=== PATIENT | female | born 1985 | race Caucasian/White ===

== ENCOUNTER 2017-10-29 07:30 | Inpatient (IN) | payer MEDICAID ==
[2017-11-04] MEDS ORDERED: cefOXitin 2 GM in Sodium Chloride 0.9% 50 ML IV ONE (07:15)
[2017-11-05] MEDS ORDERED: Acetaminophen 500 MG Tab PO ONE (06:00)
[2017-11-05] MEDS ORDERED: Gabapentin 300 MG Cap PO ONE (06:00)
[2017-11-05] MEDS ORDERED: Scopolamine 1.5 MG Transdermal Patch TOP ONE (06:00)
[2017-11-05] MEDS ORDERED: Celecoxib 200 MG Cap PO ONE (06:00)
[2017-11-05] MEDS ORDERED: Dextrose 5%-Lactated Ringers 1,000 ML IV SCH (06:45)
[2017-11-05] MEDS ORDERED: cefOXitin 2 GM Vial ONE ×2 (06:57→11:03)
[2017-11-05] MEDS ORDERED: Propofol 200 MG/20 ML SDV ONE (07:04)
[2017-11-05] MEDS ORDERED: Glycopyrrolate 0.2 MG/ML 5 ML MDV ONE (07:04)
[2017-11-05] MEDS ORDERED: Dexamethasone 4 MG/ML SDV ONE (07:04)
[2017-11-05] MEDS ORDERED: Ondansetron 4 MG/2 ML SDV ONE (07:04)
[2017-11-05] MEDS ORDERED: Succinylcholine 200 MG/10 ML MDV ONE (07:04)
[2017-11-05] MEDS ORDERED: Neostigmine Methylsulfate 1 MG/ML 5 ML Syringe ONE (07:04)
[2017-11-05] MEDS ORDERED: Rocuronium 50 MG/5 ML Vial ONE ×3 (07:04→10:51)
[2017-11-05] MEDS ORDERED: cefOXitin 2 GM in Sodium Chloride 0.9% 50 ML IV ONE (07:15)
[2017-11-05] MEDS ORDERED: Lidocaine 0.4%/D5W 2 GM/500 ML BAG IV SCH (07:45)
[2017-11-05] MEDS ORDERED: Ropivacaine 60 ML, Dexamethasone 8 MG, EPINEPHrine 0.4 MG, Sodium Chloride 0.9% 17.6 ML NERVRT SCH ×4 (07:45)
[2017-11-05] MEDS ORDERED: Ketamine 500 MG/5 ML MDV IV SCH (07:45)
[2017-11-05] MEDS ORDERED: Lidocaine 2% 100 MG/5 ML Syringe IVPUSH ONE (07:45)
[2017-11-05] MEDS ORDERED: Lactated Ringers 1,000 ML ONE (09:43)
[2017-11-05] MEDS ORDERED: fentaNYL 250 MCG/5 ML SDV ONE (10:57)
[2017-11-05] MEDS ORDERED: Sodium Chloride 0.9% 10 ML ONE (11:03)
[2017-11-05] MEDS ORDERED: hydrOXYzine HCl 100 MG/2 ML SDV IM ONE (12:04)
[2017-11-05] MEDS: Ketoconazole 2% Crm 30 GM Tube TOP SCH ×2 (13:31→21:01)
[2017-11-05] MEDS ORDERED: Ondansetron 4 MG/2 ML SDV IVPUSH PRN (14:00)
[2017-11-05] MEDS: Dextrose 5%-Lactated Ringers 1,000 ML IV SCH ×2 (14:00→23:48)
[2017-11-05] MEDS ORDERED: Labetalol 20 MG/4 ML Syringe IVPUSH PRN (14:00)
[2017-11-05] MEDS ORDERED: Metoclopramide 10 MG/2 ML SDV IVPUSH PRN (14:00)
[2017-11-05] MEDS ORDERED: hydrOXYzine HCl 100 MG/2 ML SDV IM PRN (14:00)
[2017-11-05] MEDS ORDERED: diphenhydrAMINE 50 MG/ML SDV IVPUSH PRN (14:00)
[2017-11-05] MEDS: cefOXitin 2 GM in Sodium Chloride 0.9% 50 ML IV SCH ×2 (14:33→19:22)
[2017-11-05] MEDS: Pantoprazole 40 MG Vial IVPUSH SCH (15:05)
[2017-11-05] MEDS: Acetaminophen Soln 650 MG/20.3 ML UD Cup PO SCH ×2 (15:05→21:02)
[2017-11-05] MEDS: Heparin Sodium 5,000 Units/ML Vial SUBCUT SCH (15:36)
[2017-11-05] MEDS: MVI, Adult with Vitamin K 10 ML, Thiamine 100 MG, Chromium/Copper/Mang/Selen/Zn 1 ML in... IV SCH ×4 (18:24)
[2017-11-05] MEDS: Gabapentin 250 MG/5 ML Solution ML 470 ML Bottle PO SCH (20:57)
[2017-11-06] MEDS: Heparin Sodium 5,000 Units/ML Vial SUBCUT SCH ×3 (00:37→16:46)
[2017-11-06] MEDS: cefOXitin 2 GM in Sodium Chloride 0.9% 50 ML IV SCH ×4 (02:39→20:15)
[2017-11-06] MEDS: Acetaminophen Soln 650 MG/20.3 ML UD Cup PO SCH ×4 (05:06→22:14)
[2017-11-06] MEDS: Dextrose 5%-Lactated Ringers 1,000 ML IV SCH (05:11)
[2017-11-06] MEDS ORDERED: Ondansetron 4 MG Tab.DIS PO PRN (08:33)
[2017-11-06] MEDS ORDERED: Non-Formulary Medication 1 Each (Nystatin [Nystatin] 1 APPLIC) TOP PRN (08:35)
[2017-11-06] MEDS ORDERED: Fluticasone Propionate Nasal Spray 16 GM Bottle NAS PRN (08:35)
[2017-11-06] MEDS ORDERED: Albuterol 8 GM Inhaler INH PRN (08:35)
[2017-11-06] MEDS ORDERED: Triamcinolone Acetonide 0.1% Crm 15 GM Tube TOP PRN (08:35)
[2017-11-06] MEDS ORDERED: Loratadine 10 MG Tab PO PRN (08:35)
--- NOTE | 2017-11-06 08:39 | CR ---
UGI wo KUB HISTORY: eval R -Y GBP FINDINGS: Limited upper GI series was obtained without fluoroscopy. Water-soluble contrast was admini stered orally. Immediate along with 15 minute delayed images were obtained. Sleeve gastric bypass brian nges are demonstrated. Contrast passes readily into the duodenum. No obstruction is identified. There is no contrast extravasation. Surgical drain is noted left upper quadrant. Midline skin christiano are noted. IMPRESSION: No postoperative complication identified status post sleeve gastric bypass.
[2017-11-06] MEDS ORDERED: Dextrose 5%-Lactated Ringers 1,000 ML IV SCH (08:45)
[2017-11-06] MEDS ORDERED: CICLOPIROX TOP SCH (09:00)
[2017-11-06] MEDS ORDERED: Non-Formulary Medication 1 Each (Ketoconazole [Nizoral 2% Crm] 1 APPLIC) TOP SCH (09:00)
[2017-11-06] MEDS: Celecoxib 200 MG Cap PO SCH (09:28)
[2017-11-06] MEDS: Metoprolol Tartrate 50 MG Tab PO SCH ×2 (09:33→20:33)
[2017-11-06] MEDS: PALIPERIDONE 6 MG PO SCH (09:33)
[2017-11-06] MEDS: SCOPOLAMINE PATCH CHECK TOP SCH (09:34)
[2017-11-06] MEDS: Ketoconazole 2% Crm 30 GM Tube TOP SCH ×2 (09:34→20:34)
[2017-11-06] MEDS: Lisinopril 20 MG Tab PO SCH (09:36)
[2017-11-06] MEDS: FLUoxetine 20 MG Cap PO SCH (09:36)
[2017-11-06] MEDS: Topiramate 100 MG Tab PO SCH ×2 (09:37→20:35)
[2017-11-06] MEDS: Gabapentin 250 MG/5 ML Solution ML 470 ML Bottle PO SCH ×3 (09:40→20:44)
--- NOTE | 2017-11-06 10:43 | PCM.SURGPN ---
- General Info Date of Service: 11/06/17 Date of Surgery/Procedure: 11/05/17 POD#: 1 Post-Op Diagnosis: Redd BMI 65 Functional Status: Reports: Pain Controlled, Ambulating, Urinating - Review of Systems General: Reports: Fatigue HEENT: Reports: No Symptoms Pulmonary: Reports: No Symptoms Cardiovascular: Reports: No Symptoms Gastrointestinal: Reports: Abdominal Pain, Nausea, Other (belching) Genitourinary: Reports: No Symptoms Musculoskeletal: Reports: No Symptoms Skin: Reports: No Symptoms Neurological: Reports: No Symptoms Psychiatric: Reports: No Symptoms Systems Review Comment:: Patient reports that she is tired today but feeling well. She states that she was experiencing nausea, but improved with Reglan. She states that she has been up ambulating. - Patient Data Vitals - Most Recent: Last Vital Signs Temp 37.4 C 11/06/17 07:00 Pulse 61 11/06/17 07:00 Resp 18 11/06/17 07:00 BP 152/72 H 11/06/17 09:36 Pulse Ox 94 L 11/06/17 07:00 Weight - Most Recent: 177.082 kg I&O - Last 24 Hours: Intake & Output 11/05/17 11/06/17 11/06/17 22:59 06:59 14:59 Intake Total 1334 2517 Output Total 510 405 Balance 824 2112 Med Orders - Current: Current Medications Acetaminophen (Tylenol) 650 mg PO Q6H [facility] Last Admin: 11/06/17 09:28 Dose: 650 mg Albuterol (Ventolin Hfa) 0 gm INH Q6H PRN PRN Reason: Dyspnea Celecoxib (Celebrex) 200 mg PO DAILY@0800 [facility] Last Admin: 11/06/17 09:28 Dose: 200 mg Cyanocobalamin (Vitamin B12) 1,000 mcg IM ONETIME ONE Stop: 11/07/17 09:01 Diphenhydramine HCl (Benadryl) 25 - 50 mg IVPUSH Q4H PRN PRN Reason: ITCHING Fluoxetine HCl (Prozac) 60 mg PO DAILY [facility] Last Admin: 11/06/17 09:36 Dose: 60 mg Fluticasone Propionate (Flonase) 0 gm JEREMIAS BID PRN PRN Reason: Allergies Gabapentin (Neurontin) 300 mg PO TID [facility] Last Admin: 11/06/17 09:40 Dose: 300 mg Heparin Sodium (Porcine) (Heparin Sodium) 5,000 units SUBCUT Q8H [facility] Last Admin: 11/06/17 09:28 Dose: 5,000 units Hydroxyzine HCl (Vistaril) 75 - 100 mg IM Q4H PRN PRN Reason: pain Last Admin: 11/05/17 20:53 Dose: 100 mg Multivitamins/Minerals 10 ml/Thiamine HCl 100 mg/ Chromium/Copper/Manganese/ Seleni/Zn 1 ml/ Dextrose/Lactated Ringer's 1,012 mls @ 200 mls/hr IV DAILY@ 1600 [facility] Last Admin: 11/05/17 18:24 Dose: 200 mls/hr Cefoxitin Sodium 2 gm/ Sodium (Chloride) 50 mls @ 100 mls/hr IV Q6H [facility] Stop: 11/07/17 08:29 Last Admin: 11/06/17 09:40 Dose: 100 mls/hr Dextrose/Lactated Ringer's (Dextrose 5%-Lactated Ringers) 1,000 mls @ 100 mls/ hr IV ASDIRECTED [facility] Ketoconazole (Nizoral 2% Crm) 0 gm TOP BID [facility] Last Admin: 11/06/17 09:34 Dose: 1 applic Labetalol HCl (Normodyne) 5 - 15 mg IVPUSH Q1H PRN PRN Reason: SBP over 160 OR DBP over 95 Lisinopril (Prinivil) 20 mg PO DAILY [facility] Last Admin: 11/06/17 09:36 Dose: 20 mg Loratadine (Claritin) 10 mg PO DAILY PRN PRN Reason: Allergies Metformin HCl (Glucophage) 1,000 mg PO BIDMEALS [facility] Metoclopramide HCl (Reglan) 10 mg IVPUSH Q6H [facility] Metoprolol Tartrate (Lopressor) 50 mg PO BID [facility] Last Admin: 11/06/17 09:33 Dose: Not Given Miscellaneous Information (Remove Patch) 1 ea TRDERM ONETIME ONE Stop: 11/07/17 10:01 Scopolamine Patch (Check) 1 each TOP DAILY [facility] Stop: 11/07/17 14:01 Last Admin: 11/06/17 09:34 Dose: Not Given Ondansetron HCl (Zofran) 4 mg IVPUSH Q4H PRN PRN Reason: Nausea/Vomiting Last Admin: 11/05/17 21:05 Dose: 4 mg Ondansetron HCl (Zofran Odt) 4 mg PO Q4H PRN PRN Reason: Nausea/Vomiting Paliperidone (Invega) 6 mg PO DAILY [facility] Last Admin: 11/06/17 09:33 Dose: 6 mg Pantoprazole Sodium (Protonix Iv) 40 mg IVPUSH Q24H [facility] Last Admin: 11/05/17 15:05 Dose: 40 mg Topiramate (Topamax) 100 mg PO BID [facility] Last Admin: 11/06/17 09:37 Dose: 100 mg Trazodone HCl (Trazodone) 2 - 4 mg PO BEDTIME [facility] Triamcinolone Acetonide (Triamcinolone Acetonide 0.1% Crm) 0 gm TOP BID PRN PRN Reason: Rash Discontinued Medications Acetaminophen (Tylenol Extra Strength) 1,000 mg PO ONETIME ONE Stop: 11/05/17 06:01 Last Admin: 11/05/17 06:32 Dose: 1,000 mg Cefoxitin Sodium (Mefoxin) Confirm Administered Dose 2 gm .ROUTE .STK-MED ONE Stop: 11/05/17 06:58 Last Admin: 11/05/17 08:58 Dose: 2 gm Cefoxitin Sodium (Mefoxin) Confirm Administered Dose 2 gm .ROUTE .STK-MED ONE Stop: 11/05/17 11:04 Celecoxib (Celebrex) 200 mg PO ONETIME ONE Stop: 11/05/17 06:01 Last Admin: 11/05/17 06:32 Dose: 200 mg Ropivacaine 60 ml/Dexamethasone 8 mg/Epinephrine HCl 0.4 mg/ Sodium Chloride 17.6 ml 0 ml NERVRT ASDIRECTED [facility] Last Admin: 11/05/17 08:46 Dose: 2 syringe Dexamethasone (Dexamethasone) Confirm Administered Dose 4 mg .ROUTE .STK-MED ONE Stop: 11/05/17 07:05 Fentanyl (Sublimaze) Confirm Administered Dose 250 mcg .ROUTE .STK-MED ONE Stop: 11/05/17 10:58 Fentanyl Citrate (Fentanyl) Confirm Administered Dose 500 mcg .ROUTE .STK-MED ONE Stop: 11/05/17 07:04 Gabapentin (Neurontin) 300 mg PO ONETIME ONE Stop: 11/05/17 06:01 Last Admin: 11/05/17 06:32 Dose: 300 mg Glycopyrrolate (Robinul) Confirm Administered Dose 1 mg .ROUTE .STK-MED ONE Stop: 11/05/17 07:05 Hydroxyzine HCl (Vistaril) 100 mg IM ONETIME ONE Stop: 11/05/17 12:05 Last Admin: 11/05/17 12:10 Dose: 100 mg Cefoxitin Sodium 2 gm/ Sodium (Chloride) 50 mls @ 100 mls/hr IV ONETIME ONE Stop: 11/04/17 07:44 Last Admin: 11/05/17 12:50 Dose: Not Given Dextrose/Lactated Ringer's (Dextrose 5%-Lactated Ringers) 1,000 mls @ 100 mls/ hr IV ASDIRECTED [facility] Last Admin: 11/05/17 06:36 Dose: 100 mls/hr Lidocaine HCl/Dextrose (Lidocaine 2 Gm/D5w 500 Ml) 2 gm in 500 mls @ 30 mls/hr IV .[id number] [facility] Stop: 11/06/17 00:24 Last Admin: 11/05/17 13:30 Dose: 2 mg/min, 30 mls/hr Ketamine HCl 100 mg/ Sodium (Chloride) 100 mls @ 16.5 mls/hr IV ASDIRECTED [facility] Cefoxitin Sodium 2 gm/ Sodium (Chloride) 50 mls @ 100 mls/hr IV ONETIME ONE Stop: 11/05/17 07:44 Last Admin: 11/05/17 07:29 Dose: 100 mls/hr Lactated Ringer's (Ringers, Lactated) Confirm Administered Dose 1,000 mls @ as directed .ROUTE .[facility] ONE Stop: 11/05/17 09:44 Sodium Chloride (Normal Saline) Confirm Administered Dose 10 mls @ as directed .ROUTE .[facility]-MED ONE Stop: 11/05/17 11:04 Dextrose/Lactated Ringer's (Dextrose 5%-Lactated Ringers) 1,000 mls @ 200 mls/ hr IV ASDIRECTED [facility] Last Admin: 11/06/17 05:11 Dose: 200 mls/hr Ketamine HCl (Ketalar) 28 mg IV ASDIRECTED [facility] Lidocaine HCl (Xylocaine 2%) 150 mg IVPUSH ONETIME ONE Stop: 11/05/17 07:46 Last Admin: 11/05/17 12:51 Dose: Not Given Metoclopramide HCl (Reglan) 10 mg IVPUSH Q6H PRN PRN Reason: NAUSEA NOT CONTROL BY ZOFRAN Last Admin: 11/06/17 02:39 Dose: 10 mg Neostigmine Methylsulfate (Neostigmine) Confirm Administered Dose 5 mg .ROUTE .STK-MED ONE Stop: 11/05/17 07:05 Non-Formulary Medication (Nystatin [Nystatin]) 1 applic TOP TID PRN PRN Reason: Rash Non-Formulary Medication (Ciclopirox [Loprox 0.77% Crm]) 1 applic TOP DAILY [facility] Non-Formulary Medication (Ketoconazole [Nizoral 2% Crm]) 1 applic TOP DAILY [facility] Ondansetron HCl (Zofran) Confirm Administered Dose 4 mg .ROUTE .STK-MED ONE Stop: 11/05/17 07:05 Propofol (Diprivan 20 Ml) Confirm Administered Dose 200 mg .ROUTE .STK-MED ONE Stop: 11/05/17 07:05 Rocuronium [place] (Zemuron) Confirm Administered Dose 50 mg .ROUTE .STK-MED ONE Stop: 11/05/17 07:05 Rocuronium [place] (Zemuron) Confirm Administered Dose 50 mg .ROUTE .STK-MED ONE Stop: 11/05/17 08:55 Rocuronium [place] (Zemuron) Confirm Administered Dose 50 mg .ROUTE .STK-MED ONE Stop: 11/05/17 10:52 Scopolamine (Transderm-Scop) 1.5 mg TOP ONETIME ONE Stop: 11/05/17 06:01 Last Admin: 11/05/17 06:32 Dose: 1.5 mg Succinylcholine Chloride (Quelicin) Confirm Administered Dose 200 mg .ROUTE .STK -MED ONE Stop: 11/05/17 07:05 - Exam Wound/Incisions: Other (dressing in place) Quality Assessment: DVT Prophylaxis (SCDs) General: Alert, Oriented, Cooperative, No Acute Distress HEENT: Pupils Equal, Pupils Reactive Neck: Supple, Trachea Midline Lungs: Clear to Auscultation, Normal Respiratory Effort Cardiovascular: Regular Rate, Regular Rhythm GI/Abdominal Exam: Tender, Abnormal Bowel Sounds (hypoactive) Extremities: Normal Inspection, No Pedal Edema Skin: Warm, Dry, Intact Psy/Mental Status: Alert, Normal Affect, Normal Mood - Problem List & Annotations (1) Status post gastric bypass for obesity SNOMED Code(s): 236549605, 975175257, 553244340, [id number] Code(s): Z98.84 - BARIATRIC SURGERY STATUS Status: Acute Current Visit: Yes - Problem List Review Problem List Initiated/Reviewed/Updated: Yes - My Orders Last 24 Hours: Active Orders 24 hr Category Date Time Status Patient Status [ADT] Routine ADT 11/05/17 11:45 Active Ambulate [RC] ASDIRECTED Care 11/05/17 13:31 Active Cardiac Monitoring Discontinue [RC] Click to Edit Care 11/06/17 09:00 Active Cardiac Monitoring [RC] .As Directed Care 11/05/17 13:31 Active Communication Order [RC] Q4H Care 11/05/17 13:31 Active Communication Order [RC] ROUTINE Care 11/05/17 13:31 Active Communication Order [RC] ROUTINE Care 11/06/17 06:00 Active Dorsiflex/Plantar flex x 10 [RC] QSHIFT Care 11/05/17 13:31 Active Drain Management [RC] ASDIRECTED Care 11/05/17 13:31 Active Head of Bed Elevation [RC] CONTINUOUS Care 11/05/17 13:31 Active Insert Urinary Catheter [OM.PC] Per Unit Routine Care 11/05/17 13:31 Ordered Insert Urinary Catheter [OM.PC] Per Unit Routine Care 11/05/17 13:31 Ordered Intake and Output [RC] Q1HR Care 11/05/17 20:00 Active May Shower [RC] ASDIRECTED Care 11/06/17 08:33 Active Notify Provider Intake and Out [RC] ASDIRECTED Care 11/05/17 13:31 Active Notify Provider [RC] PRN Care 11/05/17 13:31 Active Oxygen Therapy [RC] ASDIRECTED Care 11/05/17 13:31 Active Pneumonia Education [RC] UPON Care 11/05/17 13:31 Active Pulse Oximetry [RC] ASDIRECTED Care 11/05/17 13:31 Active RT BiPAP/CPAP [RC] ASDIRECTED Care 11/05/17 13:31 Active RT Incentive Spirometry [RC] Q1HWA Care 11/05/17 13:31 Active Turn, Cough, Deep Breathe [RC] Q1HWA Care 11/05/17 13:31 Active Up to Chair [RC] TIDMEALS Care 11/05/17 13:31 Active Urinary Catheter Assessment [RC] ASDIRECTED Care 11/05/17 13:32 Active Vital Signs [RC] Q1H Care 11/05/17 20:00 Active Consult to Bariatric Services [CONS] Routine Cons 11/05/17 13:31 Active Consult to Static Balancer [CONS] Routine Cons 11/05/17 13:31 Active Consult to Pharmacy [CONS] Routine Cons 11/05/17 13:31 Active Respiratory Care Assess and Treatment [CONS] Routine Cons 11/05/17 13:31 Active Bariatric Diet [DIET] Diet 11/06/17 Breakfast Active Acetaminophen [Tylenol] Med 11/05/17 16:00 Active 650 mg PO Q6H Albuterol [Ventolin HFA] Med 11/06/17 08:35 Active 0 gm INH Q6H PRN Celecoxib [CeleBREX] Med 11/06/17 08:00 Active 200 mg PO DAILY@0800 Cyanocobalamin (Vitamin B12) [Vitamin B12] Med 11/07/17 09:00 Once 1,000 mcg IM ONETIME ONE Dextrose 5%-Lactated Ringers 1,000 ml Med 11/06/17 08:45 Active IV ASDIRECTED FLUoxetine [PROzac] Med 11/06/17 09:00 Active 60 mg PO DAILY Fluticasone Propionate [Flonase] Med 11/06/17 08:35 Active 0 gm JEREMIAS BID PRN Gabapentin [Neurontin] Med 11/05/17 21:00 Active 300 mg PO TID Heparin Sodium Med 11/05/17 16:00 Active 5,000 units SUBCUT Q8H Labetalol [Normodyne] Med 11/05/17 14:00 Active 5 - 15 mg IVPUSH Q1H PRN Lisinopril [Prinivil] Med 11/06/17 09:00 Active 20 mg PO DAILY Loratadine [Claritin] Med 11/06/17 08:35 Active 10 mg PO DAILY PRN MVI, Adult with Vitamin K [Infuvite Adult] 10 ml Med 11/05/17 16:00 Active Thiamine [Vitamin B-1] 100 mg Chromium/Copper/Kemal/Selen/Zn [Multitrace-5 Concentrate ] 1 ml Dextrose 5%-Lactated Ringers 1,000 ml IV DAILY@1600 Metoclopramide [Reglan] Med 11/06/17 10:00 Active 10 mg IVPUSH Q6H Metoprolol Tartrate [Lopressor] Med 11/06/17 09:00 Active 50 mg PO BID Non-Formulary Medication [NF Drug] Med 11/05/17 14:00 Active 1 each TOP DAILY Ondansetron [Zofran ODT] Med 11/06/17 08:33 Active 4 mg PO Q4H PRN Ondansetron [Zofran] Med 11/05/17 14:00 Active 4 mg IVPUSH Q4H PRN Paliperidone [Invega] Med 11/06/17 09:00 Active 6 mg PO DAILY Pantoprazole [ProTONIX IV] Med 11/05/17 16:00 Active 40 mg IVPUSH Q24H Remove Patch Med 11/07/17 10:00 Once 1 ea TRDERM ONETIME ONE Topiramate [Topamax] Med 11/06/17 09:00 Active 100 mg PO BID Triamcinolone Acetonide [Triamcinolone Acetonide 0.1% Med 11/06/17 08:35 Active Crm] 0 gm TOP BID PRN cefOXitin [Mefoxin] 2 gm Med 11/05/17 14:00 Active Sodium Chloride 0.9% [Normal Saline] 50 ml IV Q6H diphenhydrAMINE [Benadryl] Med 11/05/17 14:00 Active 25 - 50 mg IVPUSH Q4H PRN hydrOXYzine HCl [Vistaril] Med 11/05/17 14:00 Active 75 - 100 mg IM Q4H PRN metFORMIN [Glucophage] Med 11/06/17 17:00 Active 1,000 mg PO BIDMEALS traZODone Med 11/06/17 21:00 Active 2 - 4 mg PO BEDTIME Abdominal Binder [OM.PC] Routine Oth 11/05/17 13:31 Ordered Oral Care [OM.PC] BID Oth 11/05/17 13:45 Ordered Oral Care [OM.PC] BID Oth 11/06/17 13:45 Ordered PT Screening [OM.PC] Routine Oth 11/05/17 13:31 Active Sequential Compression Device [OM.PC] Routine Oth 11/05/17 13:31 Ordered Specialty Bed [OM.PC] Routine Oth 11/05/17 13:31 Ordered Resuscitation Status Routine Resus Stat 11/05/17 13:31 Ordered Medication Orders Acetaminophen (Tylenol) 650 mg PO Q6H [facility] Last Admin: 11/06/17 09:28 Dose: 650 mg Admin: 11/06/17 05:06 Dose: 650 mg Admin: 11/05/17 21:02 Dose: 650 mg Admin: 11/05/17 15:05 Dose: 650 mg Albuterol (Ventolin Hfa) 0 gm INH Q6H PRN PRN Reason: Dyspnea Celecoxib (Celebrex) 200 mg PO DAILY@0800 [facility] Last Admin: 11/06/17 09:28 Dose: 200 mg Cyanocobalamin (Vitamin B12) 1,000 mcg IM ONETIME ONE Stop: 11/07/17 09:01 Diphenhydramine HCl (Benadryl) 25 - 50 mg IVPUSH Q4H PRN PRN Reason: ITCHING Fluoxetine HCl (Prozac) 60 mg PO DAILY [facility] Last Admin: 11/06/17 09:36 Dose: 60 mg Fluticasone Propionate (Flonase) 0 gm JEREMIAS BID PRN PRN Reason: Allergies Gabapentin (Neurontin) 300 mg PO TID [facility] Last Admin: 11/06/17 09:40 Dose: 300 mg Admin: 11/05/17 20:57 Dose: 300 mg Heparin Sodium (Porcine) (Heparin Sodium) 5,000 units SUBCUT Q8H [facility] Last Admin: 11/06/17 09:28 Dose: 5,000 units Admin: 11/06/17 00:37 Dose: 5,000 units Admin: 11/05/17 15:36 Dose: 5,000 units Hydroxyzine HCl (Vistaril) 75 - 100 mg IM Q4H PRN PRN Reason: pain Last Admin: 11/05/17 20:53 Dose: 100 mg Multivitamins/Minerals 10 ml/Thiamine HCl 100 mg/ Chromium/Copper/Manganese/ Seleni/Zn 1 ml/ Dextrose/Lactated Ringer's 1,012 mls @ 200 mls/hr IV DAILY@ 1600 [facility] Last Admin: 11/05/17 18:24 Dose: 200 mls/hr Cefoxitin Sodium 2 gm/ Sodium (Chloride) 50 mls @ 100 mls/hr IV Q6H [facility] Stop: 11/07/17 08:29 Last Admin: 11/06/17 09:40 Dose: 100 mls/hr Admin: 11/06/17 02:39 Dose: 100 mls/hr Admin: 11/05/17 19:22 Dose: 100 mls/hr Admin: 11/05/17 14:33 Dose: 100 mls/hr Dextrose/Lactated Ringer's (Dextrose 5%-Lactated Ringers) 1,000 mls @ 100 mls/ hr IV ASDIRECTED [facility] Ketoconazole (Nizoral 2% Crm) 0 gm TOP BID [facility] Last Admin: 11/06/17 09:34 Dose: 1 applic Admin: 11/05/17 21:01 Dose: 1 applic Admin: 11/05/17 13:31 Dose: 1 applic Labetalol HCl (Normodyne) 5 - 15 mg IVPUSH Q1H PRN PRN Reason: SBP over 160 OR DBP over 95 Lisinopril (Prinivil) 20 mg PO DAILY [facility] Last Admin: 11/06/17 09:36 Dose: 20 mg Loratadine (Claritin) 10 mg PO DAILY PRN PRN Reason: Allergies Metformin HCl (Glucophage) 1,000 mg PO BIDMEALS [facility] Metoclopramide HCl (Reglan) 10 mg IVPUSH Q6H [facility] Metoprolol Tartrate (Lopressor) 50 mg PO BID [facility] Last Admin: 11/06/17 09:33 Dose: Miscellaneous Information (Remove Patch) 1 ea TRDERM ONETIME ONE Stop: 11/07/17 10:01 Scopolamine Patch (Check) 1 each TOP DAILY [facility] Stop: 11/07/17 14:01 Last Admin: 11/06/17 09:34 Dose: Ondansetron HCl (Zofran) 4 mg IVPUSH Q4H PRN PRN Reason: Nausea/Vomiting Last Admin: 11/05/17 21:05 Dose: 4 mg Ondansetron HCl (Zofran Odt) 4 mg PO Q4H PRN PRN Reason: Nausea/Vomiting Paliperidone (Invega) 6 mg PO DAILY [facility] Last Admin: 11/06/17 09:33 Dose: 6 mg Pantoprazole Sodium (Protonix Iv) 40 mg IVPUSH Q24H [facility] Last Admin: 11/05/17 15:05 Dose: 40 mg Topiramate (Topamax) 100 mg PO BID [facility] Last Admin: 11/06/17 09:37 Dose: 100 mg Trazodone HCl (Trazodone) 2 - 4 mg PO BEDTIME [facility] Triamcinolone Acetonide (Triamcinolone Acetonide 0.1% Crm) 0 gm TOP BID PRN PRN Reason: Rash - Assessment Assessment (Free Text/Narrative):: S/p open prisca-en-y gastric bypass - Plan Plan (Free Text/Narrative):: -Reglan 10 mg IV push q 6 hours. -Metformin 1000 mg BID with meals. -Fluoxetine 60 mg PO daily. -Lisinopril 20 mg PO daily. -Metoprolol Tartrate 50 mg PO BID. -Paliperidone 6 mg PO daily. -Topiramate 100 mg PO BID. -Trazodone 2-4 mg PO at bedtime. -Triamcinolone topical cream BID prn for rash. -Zofran 4 mg PO q 4 hours prn for nausea. -Flonase nasal spray BID prn for allergies. -Loratadine 10 mg PO daily prn for allergies. -Albuterol q 6 hours prn for dyspnea. -Remove covington catheter today. -Step 2 diet today. -May shower today. -IVF @ 100ml/hr. -Discontinue cardiac monitoring.
[2017-11-06] MEDS: Metoclopramide 10 MG/2 ML SDV IVPUSH SCH ×3 (12:50→22:14)
[2017-11-06] MEDS: MVI, Adult with Vitamin K 10 ML, Thiamine 100 MG, Chromium/Copper/Mang/Selen/Zn 1 ML in... IV SCH ×4 (16:46)
[2017-11-06] MEDS: Pantoprazole 40 MG Vial IVPUSH SCH (16:47)
[2017-11-06] MEDS: metFORMIN 500 MG Tab PO SCH (16:49)
[2017-11-06] MEDS ORDERED: traZODone 50 MG Tab PO SCH ×2 (21:00→21:29)
[2017-11-06] MEDS: traZODone 50 MG Tab PO SCH (22:20)
[2017-11-07] MEDS: cefOXitin 2 GM in Sodium Chloride 0.9% 50 ML IV SCH ×2 (01:33→08:51)
[2017-11-07] MEDS: Heparin Sodium 5,000 Units/ML Vial SUBCUT SCH ×4 (01:34→23:50)
[2017-11-07] MEDS: Acetaminophen Soln 650 MG/20.3 ML UD Cup PO SCH ×4 (03:03→20:59)
[2017-11-07] MEDS: Metoclopramide 10 MG/2 ML SDV IVPUSH SCH (03:06)
--- NOTE | 2017-11-07 07:26 | PCM.SURGPN ---
- General Info Date of Service: 11/07/17 Date of Surgery/Procedure: 11/05/17 POD#: 2 Functional Status: Reports: Pain Controlled, Tolerating Diet, Ambulating, Urinating, Incentive Spirometry - Review of Systems General: Reports: No Symptoms HEENT: Reports: No Symptoms Pulmonary: Reports: No Symptoms Cardiovascular: Reports: No Symptoms Gastrointestinal: Reports: Abdominal Pain, Flatus Genitourinary: Reports: No Symptoms Musculoskeletal: Reports: No Symptoms Skin: Reports: No Symptoms Neurological: Reports: No Symptoms Psychiatric: Reports: No Symptoms Systems Review Comment:: Patient reports that she is feeling well today. She is tolerating her diet. Had a BM. Up ambulating and using her IS. - Patient Data Vitals - Most Recent: Last Vital Signs Temp 38.0 C 11/07/17 03:00 Pulse 69 11/07/17 03:00 Resp 16 11/07/17 03:00 BP 104/61 11/07/17 03:00 Pulse Ox 94 L 11/07/17 03:00 Weight - Most Recent: 177.082 kg I&O - Last 24 Hours: Intake & Output 11/06/17 11/07/17 11/07/17 22:59 06:59 14:59 Intake Total 1667 230 Output Total 270 520 Balance 1397 -290 Med Orders - Current: Current Medications Acetaminophen (Tylenol) 650 mg PO Q6H [facility] Last Admin: 11/07/17 03:03 Dose: 650 mg Albuterol (Ventolin Hfa) 0 gm INH Q6H PRN PRN Reason: Dyspnea Celecoxib (Celebrex) 200 mg PO DAILY@0800 [facility] Last Admin: 11/06/17 09:28 Dose: 200 mg Cyanocobalamin (Vitamin B12) 1,000 mcg IM ONETIME ONE Stop: 11/07/17 09:01 Diphenhydramine HCl (Benadryl) 25 - 50 mg IVPUSH Q4H PRN PRN Reason: ITCHING Fluoxetine HCl (Prozac) 60 mg PO DAILY [facility] Last Admin: 11/06/17 09:36 Dose: 60 mg Fluticasone Propionate (Flonase) 0 gm JEREMIAS BID PRN PRN Reason: Allergies Gabapentin (Neurontin) 300 mg PO TID [facility] Last Admin: 11/06/17 20:44 Dose: 300 mg Heparin Sodium (Porcine) (Heparin Sodium) 5,000 units SUBCUT Q8H [facility] Last Admin: 11/07/17 01:34 Dose: 5,000 units Hydroxyzine HCl (Vistaril) 75 - 100 mg IM Q4H PRN PRN Reason: pain Last Admin: 11/05/17 20:53 Dose: 100 mg Multivitamins/Minerals 10 ml/Thiamine HCl 100 mg/ Chromium/Copper/Manganese/ Seleni/Zn 1 ml/ Dextrose/Lactated Ringer's 1,012 mls @ 200 mls/hr IV DAILY@ 1600 [facility] Last Admin: 11/06/17 16:46 Dose: 200 mls/hr Cefoxitin Sodium 2 gm/ Sodium (Chloride) 50 mls @ 100 mls/hr IV Q6H [facility] Stop: 11/07/17 08:29 Last Admin: 11/07/17 01:33 Dose: 100 mls/hr Dextrose/Lactated Ringer's (Dextrose 5%-Lactated Ringers) 1,000 mls @ 100 mls/ hr IV ASDIRECTED [facility] Last Admin: 11/06/17 12:52 Dose: 100 mls/hr Ketoconazole (Nizoral 2% Crm) 0 gm TOP BID [facility] Last Admin: 11/06/17 20:34 Dose: 1 applic Labetalol HCl (Normodyne) 5 - 15 mg IVPUSH Q1H PRN PRN Reason: SBP over 160 OR DBP over 95 Lisinopril (Prinivil) 20 mg PO DAILY [facility] Last Admin: 11/06/17 09:36 Dose: 20 mg Loratadine (Claritin) 10 mg PO DAILY PRN PRN Reason: Allergies Metformin HCl (Glucophage) 1,000 mg PO BIDMEALS [facility] Last Admin: 11/06/17 16:49 Dose: 1,000 mg Metoclopramide HCl (Reglan) 10 mg IVPUSH Q6H [facility] Last Admin: 11/07/17 03:06 Dose: Not Given Metoprolol Tartrate (Lopressor) 50 mg PO BID [facility] Last Admin: 11/06/17 20:33 Dose: 50 mg Miscellaneous Information (Remove Patch) 1 ea TRDERM ONETIME ONE Stop: 11/07/17 10:01 Scopolamine Patch (Check) 1 each TOP DAILY [facility] Stop: 11/07/17 14:01 Last Admin: 11/06/17 09:34 Dose: Not Given Ondansetron HCl (Zofran) 4 mg IVPUSH Q4H PRN PRN Reason: Nausea/Vomiting Last Admin: 11/05/17 21:05 Dose: 4 mg Ondansetron HCl (Zofran Odt) 4 mg PO Q4H PRN PRN Reason: Nausea/Vomiting Paliperidone (Invega) 6 mg PO DAILY [facility] Last Admin: 11/06/17 09:33 Dose: 6 mg Pantoprazole Sodium (Protonix Iv) 40 mg IVPUSH Q24H [facility] Last Admin: 11/06/17 16:47 Dose: 40 mg Topiramate (Topamax) 100 mg PO BID [facility] Last Admin: 11/06/17 20:35 Dose: 100 mg Trazodone HCl (Trazodone) 100 - 200 mg PO BEDTIME [facility] Last Admin: 11/06/17 22:20 Dose: 100 mg Triamcinolone Acetonide (Triamcinolone Acetonide 0.1% Crm) 0 gm TOP BID PRN PRN Reason: Rash Discontinued Medications Acetaminophen (Tylenol Extra Strength) 1,000 mg PO ONETIME ONE Stop: 11/05/17 06:01 Last Admin: 11/05/17 06:32 Dose: 1,000 mg Cefoxitin Sodium (Mefoxin) Confirm Administered Dose 2 gm .ROUTE .STK-MED ONE Stop: 11/05/17 06:58 Last Admin: 11/05/17 08:58 Dose: 2 gm Cefoxitin Sodium (Mefoxin) Confirm Administered Dose 2 gm .ROUTE .STK-MED ONE Stop: 11/05/17 11:04 Celecoxib (Celebrex) 200 mg PO ONETIME ONE Stop: 11/05/17 06:01 Last Admin: 11/05/17 06:32 Dose: 200 mg Ropivacaine 60 ml/Dexamethasone 8 mg/Epinephrine HCl 0.4 mg/ Sodium Chloride 17.6 ml 0 ml NERVRT ASDIRECTED [facility] Last Admin: 11/05/17 08:46 Dose: 2 syringe Dexamethasone (Dexamethasone) Confirm Administered Dose 4 mg .ROUTE .STK-MED ONE Stop: 11/05/17 07:05 Fentanyl (Sublimaze) Confirm Administered Dose 250 mcg .ROUTE .STK-MED ONE Stop: 11/05/17 10:58 Fentanyl Citrate (Fentanyl) Confirm Administered Dose 500 mcg .ROUTE .STK-MED ONE Stop: 11/05/17 07:04 Gabapentin (Neurontin) 300 mg PO ONETIME ONE Stop: 11/05/17 06:01 Last Admin: 11/05/17 06:32 Dose: 300 mg Glycopyrrolate (Robinul) Confirm Administered Dose 1 mg .ROUTE .STK-MED ONE Stop: 11/05/17 07:05 Hydroxyzine HCl (Vistaril) 100 mg IM ONETIME ONE Stop: 11/05/17 12:05 Last Admin: 11/05/17 12:10 Dose: 100 mg Cefoxitin Sodium 2 gm/ Sodium (Chloride) 50 mls @ 100 mls/hr IV ONETIME ONE Stop: 11/04/17 07:44 Last Admin: 11/05/17 12:50 Dose: Not Given Dextrose/Lactated Ringer's (Dextrose 5%-Lactated Ringers) 1,000 mls @ 100 mls/ hr IV ASDIRECTED [facility] Last Admin: 11/05/17 06:36 Dose: 100 mls/hr Lidocaine HCl/Dextrose (Lidocaine 2 Gm/D5w 500 Ml) 2 gm in 500 mls @ 30 mls/hr IV .[id number] [facility] Stop: 11/06/17 00:24 Last Admin: 11/05/17 13:30 Dose: 2 mg/min, 30 mls/hr Ketamine HCl 100 mg/ Sodium (Chloride) 100 mls @ 16.5 mls/hr IV ASDIRECTED [facility] Cefoxitin Sodium 2 gm/ Sodium (Chloride) 50 mls @ 100 mls/hr IV ONETIME ONE Stop: 11/05/17 07:44 Last Admin: 11/05/17 07:29 Dose: 100 mls/hr Lactated Ringer's (Ringers, Lactated) Confirm Administered Dose 1,000 mls @ as directed .ROUTE .STK-MED ONE Stop: 11/05/17 09:44 Sodium Chloride (Normal Saline) Confirm Administered Dose 10 mls @ as directed .ROUTE .STK-MED ONE Stop: 11/05/17 11:04 Dextrose/Lactated Ringer's (Dextrose 5%-Lactated Ringers) 1,000 mls @ 200 mls/ hr IV ASDIRECTED [facility] Last Admin: 11/06/17 05:11 Dose: 200 mls/hr Ketamine HCl (Ketalar) 28 mg IV ASDIRECTED [facility] Lidocaine HCl (Xylocaine 2%) 150 mg IVPUSH ONETIME ONE Stop: 11/05/17 07:46 Last Admin: 11/05/17 12:51 Dose: Not Given Metoclopramide HCl (Reglan) 10 mg IVPUSH Q6H PRN PRN Reason: NAUSEA NOT CONTROL BY ZOFRAN Last Admin: 11/06/17 02:39 Dose: 10 mg Neostigmine Methylsulfate (Neostigmine) Confirm Administered Dose 5 mg .ROUTE .STK-MED ONE Stop: 11/05/17 07:05 Non-Formulary Medication (Nystatin [Nystatin]) 1 applic TOP TID PRN PRN Reason: Rash Non-Formulary Medication (Ciclopirox [Loprox 0.77% Crm]) 1 applic TOP DAILY [facility] Non-Formulary Medication (Ketoconazole [Nizoral 2% Crm]) 1 applic TOP DAILY [facility] Ondansetron HCl (Zofran) Confirm Administered Dose 4 mg .ROUTE .STK-MED ONE Stop: 11/05/17 07:05 Propofol (Diprivan 20 Ml) Confirm Administered Dose 200 mg .ROUTE .STK-MED ONE Stop: 11/05/17 07:05 Rocuronium [place] (Zemuron) Confirm Administered Dose 50 mg .ROUTE .STK-MED ONE Stop: 11/05/17 07:05 Rocuronium [place] (Zemuron) Confirm Administered Dose 50 mg .ROUTE .STK-MED ONE Stop: 11/05/17 08:55 Rocuronium [place] (Zemuron) Confirm Administered Dose 50 mg .ROUTE .STK-MED ONE Stop: 11/05/17 10:52 Scopolamine (Transderm-Scop) 1.5 mg TOP ONETIME ONE Stop: 11/05/17 06:01 Last Admin: 11/05/17 06:32 Dose: 1.5 mg Succinylcholine Chloride (Quelicin) Confirm Administered Dose 200 mg .ROUTE .STK -MED ONE Stop: 11/05/17 07:05 Trazodone HCl (Trazodone) 2 - 4 mg PO BEDTIME [facility] Last Admin: 11/06/17 22:37 Dose: Not Given Trazodone HCl (Trazodone) 100 - 200 mg PO BEDTIME [facility] - Exam Wound/Incisions: Dressing Dry and Intact, Other (ROBYN drain with serosanguineous fluid) General: Alert, Oriented, Cooperative, No Acute Distress HEENT: Pupils Equal, Pupils Reactive Neck: Supple, Trachea Midline Lungs: Clear to Auscultation, Normal Respiratory Effort Cardiovascular: Regular Rate, Regular Rhythm GI/Abdominal Exam: Normal Bowel Sounds, Soft, Tender Extremities: Normal Inspection, Non-Tender, No Pedal Edema Skin: Warm, Dry, Intact Neurological: No New Focal Deficit Psy/Mental Status: Alert, Normal Affect, Normal Mood - Problem List & Annotations (1) Status post gastric bypass for obesity SNOMED Code(s): 004946393, 691185240, 709506513, 628319317 Code(s): Z98.84 - BARIATRIC SURGERY STATUS Status: Acute Current Visit: Yes - Problem List Review Problem List Initiated/Reviewed/Updated: Yes - My Orders Last 24 Hours: Active Orders 24 hr Category Date Time Status May Shower [RC] ASDIRECTED Care 11/06/17 08:33 Active Bariatric Diet [DIET] Diet 11/06/17 Breakfast Active Albuterol [Ventolin HFA] Med 11/06/17 08:35 Active 0 gm INH Q6H PRN Celecoxib [CeleBREX] Med 11/06/17 08:00 Active 200 mg PO DAILY@0800 Cyanocobalamin (Vitamin B12) [Vitamin B12] Med 11/07/17 09:00 Once 1,000 mcg IM ONETIME ONE Dextrose 5%-Lactated Ringers 1,000 ml Med 11/06/17 08:45 Active IV ASDIRECTED FLUoxetine [PROzac] Med 11/06/17 09:00 Active 60 mg PO DAILY Fluticasone Propionate [Flonase] Med 11/06/17 08:35 Active 0 gm JEREMIAS BID PRN Lisinopril [Prinivil] Med 11/06/17 09:00 Active 20 mg PO DAILY Loratadine [Claritin] Med 11/06/17 08:35 Active 10 mg PO DAILY PRN Metoclopramide [Reglan] Med 11/06/17 10:00 Active 10 mg IVPUSH Q6H Metoprolol Tartrate [Lopressor] Med 11/06/17 09:00 Active 50 mg PO BID Ondansetron [Zofran ODT] Med 11/06/17 08:33 Active 4 mg PO Q4H PRN Paliperidone [Invega] Med 11/06/17 09:00 Active 6 mg PO DAILY Remove Patch Med 11/07/17 10:00 Once 1 ea TRDERM ONETIME ONE Topiramate [Topamax] Med 11/06/17 09:00 Active 100 mg PO BID Triamcinolone Acetonide [Triamcinolone Acetonide 0.1% Med 11/06/17 08:35 Active Crm] 0 gm TOP BID PRN metFORMIN [Glucophage] Med 11/06/17 17:00 Active 1,000 mg PO BIDMEALS traZODone Med 11/06/17 22:00 Active 100 - 200 mg PO BEDTIME Oral Care [OM.PC] BID Oth 11/06/17 13:45 Ordered Medication Orders Acetaminophen (Tylenol) 650 mg PO Q6H [facility] Last Admin: 11/07/17 03:03 Dose: 650 mg Admin: 11/06/17 22:14 Dose: 650 mg Admin: 11/06/17 16:46 Dose: 650 mg Admin: 11/06/17 09:28 Dose: 650 mg Admin: 11/06/17 05:06 Dose: 650 mg Admin: 11/05/17 21:02 Dose: 650 mg Admin: 11/05/17 15:05 Dose: 650 mg Albuterol (Ventolin Hfa) 0 gm INH Q6H PRN PRN Reason: Dyspnea Celecoxib (Celebrex) 200 mg PO DAILY@0800 [facility] Last Admin: 11/06/17 09:28 Dose: 200 mg Cyanocobalamin (Vitamin B12) 1,000 mcg IM ONETIME ONE Stop: 11/07/17 09:01 Diphenhydramine HCl (Benadryl) 25 - 50 mg IVPUSH Q4H PRN PRN Reason: ITCHING Fluoxetine HCl (Prozac) 60 mg PO DAILY [facility] Last Admin: 11/06/17 09:36 Dose: 60 mg Fluticasone Propionate (Flonase) 0 gm JEREMIAS BID PRN PRN Reason: Allergies Gabapentin (Neurontin) 300 mg PO TID [facility] Last Admin: 11/06/17 20:44 Dose: 300 mg Admin: 11/06/17 13:56 Dose: 300 mg Admin: 11/06/17 09:40 Dose: 300 mg Admin: 11/05/17 20:57 Dose: 300 mg Heparin Sodium (Porcine) (Heparin Sodium) 5,000 units SUBCUT Q8H [facility] Last Admin: 11/07/17 01:34 Dose: 5,000 units Admin: 11/06/17 16:46 Dose: 5,000 units Admin: 11/06/17 09:28 Dose: 5,000 units Admin: 11/06/17 00:37 Dose: 5,000 units Admin: 11/05/17 15:36 Dose: 5,000 units Hydroxyzine HCl (Vistaril) 75 - 100 mg IM Q4H PRN PRN Reason: pain Last Admin: 11/05/17 20:53 Dose: 100 mg Multivitamins/Minerals 10 ml/Thiamine HCl 100 mg/ Chromium/Copper/Manganese/ Seleni/Zn 1 ml/ Dextrose/Lactated Ringer's 1,012 mls @ 200 mls/hr IV DAILY@ 1600 [facility] Last Admin: 11/06/17 16:46 Dose: 200 mls/hr Admin: 11/05/17 18:24 Dose: 200 mls/hr Cefoxitin Sodium 2 gm/ Sodium (Chloride) 50 mls @ 100 mls/hr IV Q6H [facility] Stop: 11/07/17 08:29 Last Admin: 11/07/17 01:33 Dose: 100 mls/hr Admin: 11/06/17 20:15 Dose: 100 mls/hr Admin: 11/06/17 13:51 Dose: 100 mls/hr Admin: 11/06/17 09:40 Dose: 100 mls/hr Admin: 11/06/17 02:39 Dose: 100 mls/hr Admin: 11/05/17 19:22 Dose: 100 mls/hr Admin: 11/05/17 14:33 Dose: 100 mls/hr Dextrose/Lactated Ringer's (Dextrose 5%-Lactated Ringers) 1,000 mls @ 100 mls/ hr IV ASDIRECTED [facility] Last Admin: 11/06/17 12:52 Dose: 100 mls/hr Ketoconazole (Nizoral 2% Crm) 0 gm TOP BID [facility] Last Admin: 11/06/17 20:34 Dose: 1 applic Admin: 11/06/17 09:34 Dose: 1 applic Admin: 11/05/17 21:01 Dose: 1 applic Admin: 11/05/17 13:31 Dose: 1 applic Labetalol HCl (Normodyne) 5 - 15 mg IVPUSH Q1H PRN PRN Reason: SBP over 160 OR DBP over 95 Lisinopril (Prinivil) 20 mg PO DAILY [facility] Last Admin: 11/06/17 09:36 Dose: 20 mg Loratadine (Claritin) 10 mg PO DAILY PRN PRN Reason: Allergies Metformin HCl (Glucophage) 1,000 mg PO BIDMEALS [facility] Last Admin: 11/06/17 16:49 Dose: 1,000 mg Metoclopramide HCl (Reglan) 10 mg IVPUSH Q6H [facility] Last Admin: 11/07/17 03:06 Dose: Not Given Admin: 11/06/17 22:14 Dose: 10 mg Admin: 11/06/17 16:47 Dose: 10 mg Admin: 11/06/17 12:50 Dose: 10 mg Metoprolol Tartrate (Lopressor) 50 mg PO BID [facility] Last Admin: 11/06/17 20:33 Dose: 50 mg Admin: 11/06/17 09:33 Dose: Miscellaneous Information (Remove Patch) 1 ea TRDERM ONETIME ONE Stop: 11/07/17 10:01 Scopolamine Patch (Check) 1 each TOP DAILY [facility] Stop: 11/07/17 14:01 Last Admin: 11/06/17 09:34 Dose: Ondansetron HCl (Zofran) 4 mg IVPUSH Q4H PRN PRN Reason: Nausea/Vomiting Last Admin: 11/05/17 21:05 Dose: 4 mg Ondansetron HCl (Zofran Odt) 4 mg PO Q4H PRN PRN Reason: Nausea/Vomiting Paliperidone (Invega) 6 mg PO DAILY [facility] Last Admin: 11/06/17 09:33 Dose: 6 mg Pantoprazole Sodium (Protonix Iv) 40 mg IVPUSH Q24H [facility] Last Admin: 11/06/17 16:47 Dose: 40 mg Admin: 11/05/17 15:05 Dose: 40 mg Topiramate (Topamax) 100 mg PO BID [facility] Last Admin: 11/06/17 20:35 Dose: 100 mg Admin: 11/06/17 09:37 Dose: 100 mg Trazodone HCl (Trazodone) 100 - 200 mg PO BEDTIME [facility] Last Admin: 11/06/17 22:20 Dose: 100 mg Triamcinolone Acetonide (Triamcinolone Acetonide 0.1% Crm) 0 gm TOP BID PRN PRN Reason: Rash - Assessment Assessment (Free Text/Narrative):: S/p open prisca-en-y gastric bypass - Plan Plan (Free Text/Narrative):: -Continue step 2 diet. -May shower today. -Encouraged ambulation and IS use.
[2017-11-07] MEDS: Metoprolol Tartrate 50 MG Tab PO SCH ×2 (08:47→20:53)
[2017-11-07] MEDS: FLUoxetine 20 MG Cap PO SCH (08:51)
[2017-11-07] MEDS: PALIPERIDONE 6 MG PO SCH (08:52)
[2017-11-07] MEDS: Celecoxib 200 MG Cap PO SCH (08:52)
[2017-11-07] MEDS: Topiramate 100 MG Tab PO SCH ×2 (08:52→20:53)
[2017-11-07] MEDS: metFORMIN 500 MG Tab PO SCH ×2 (08:52→17:09)
[2017-11-07] MEDS: Lisinopril 20 MG Tab PO SCH (08:52)
[2017-11-07] MEDS: Ketoconazole 2% Crm 30 GM Tube TOP SCH ×2 (08:53→20:56)
[2017-11-07] MEDS: SCOPOLAMINE PATCH CHECK TOP SCH (08:53)
[2017-11-07] MEDS: Gabapentin 250 MG/5 ML Solution ML 470 ML Bottle PO SCH ×3 (08:56→20:52)
[2017-11-07] MEDS ORDERED: Cyanocobalamin (Vitamin B12) 1,000 MCG/ML SDV IM ONE (09:00)
[2017-11-07] MEDS: Pantoprazole 40 MG Tab.CR PO SCH (11:24)
[2017-11-07] MEDS ORDERED: Topiramate 25 MG Tab ONE (20:49)
[2017-11-07] MEDS: traZODone 50 MG Tab PO SCH (20:52)
[2017-11-08] MEDS: Acetaminophen Soln 650 MG/20.3 ML UD Cup PO SCH ×4 (03:27→21:00)
[2017-11-08] MEDS: Metoprolol Tartrate 50 MG Tab PO SCH ×2 (08:50→20:59)
[2017-11-08] MEDS: Lisinopril 20 MG Tab PO SCH (08:51)
[2017-11-08] MEDS: FLUoxetine 20 MG Cap PO SCH (08:52)
[2017-11-08] MEDS: Pantoprazole 40 MG Tab.CR PO SCH (08:52)
[2017-11-08] MEDS: PALIPERIDONE 6 MG PO SCH (08:52)
[2017-11-08] MEDS: metFORMIN 500 MG Tab PO SCH ×2 (08:52→18:00)
[2017-11-08] MEDS: Celecoxib 200 MG Cap PO SCH (08:53)
[2017-11-08] MEDS: Heparin Sodium 5,000 Units/ML Vial SUBCUT SCH ×2 (08:53→15:29)
[2017-11-08] MEDS: Gabapentin 250 MG/5 ML Solution ML 470 ML Bottle PO SCH ×3 (11:15→20:59)
[2017-11-08] MEDS: Ketoconazole 2% Crm 30 GM Tube TOP SCH ×2 (11:16→20:59)
[2017-11-08] MEDS: Topiramate 100 MG Tab PO SCH ×3 (12:20→21:00)
--- NOTE | 2017-11-08 13:57 | PN ---
DATE OF SERVICE: 11/07/2017 The patient has been afebrile with stable vital signs. Did move her bowels this morning. Oral intake was a little over a liter yesterday and urine output remains satisfactory. Plan will be to keep her through the weekend to make sure she is doing okay in terms of her oral intake and not overly aggressive with bowel activity and then back to assisted living probably on Thursday. Seng Em MD /[id number]
--- NOTE | 2017-11-08 16:51 | PN ---
DATE OF SERVICE: 11/07/2017 The patient has been afebrile with stable vital signs. She did move her bowels this morning, her oral intake has been fairly good, and we will continue the step-2 diet. Otherwise, I think we can discontinue the scopolamine patch. I am anticipating she may get into some frequent loose bowel movements or diarrhea, and given this, we will check a C. diff preoperatively, so that if the time comes we need to give her Imodium and/or Lomotil without checking in at that point. Seng Em MD /[id number]
--- NOTE | 2017-11-08 17:45 | PN ---
DATE OF SERVICE: 11/08/2017 The patient had a temperature of 101.1 yesterday evening. Her current temperature is 100.3. This is most likely pulmonary in nature. We will need to aggressively work with her pulmonary toilet today and maximize activity. We will hold the discharge until that issue is cleared. We will have RT see the patient t.i.d. as well today. She is moving her bowels around 4 times a day, which at this point I do not think will slow down. We did check her stool for C. diff yesterday which was negative. Seng Em MD /[id number]
[2017-11-08] MEDS: traZODone 50 MG Tab PO SCH (21:13)
[2017-11-09] MEDS: Heparin Sodium 5,000 Units/ML Vial SUBCUT SCH ×2 (00:01→09:14)
[2017-11-09] MEDS: Acetaminophen Soln 650 MG/20.3 ML UD Cup PO SCH ×2 (04:15→09:14)
[2017-11-09] MEDS: Celecoxib 200 MG Cap PO SCH (07:36)
[2017-11-09] MEDS: Pantoprazole 40 MG Tab.CR PO SCH (07:36)
[2017-11-09] MEDS: metFORMIN 500 MG Tab PO SCH (07:36)
[2017-11-09] MEDS: Gabapentin 250 MG/5 ML Solution ML 470 ML Bottle PO SCH (08:54)
[2017-11-09] MEDS: FLUoxetine 20 MG Cap PO SCH (08:54)
[2017-11-09] MEDS: PALIPERIDONE 6 MG PO SCH (08:55)
[2017-11-09] MEDS: Ketoconazole 2% Crm 30 GM Tube TOP SCH (08:55)
[2017-11-09] MEDS: Topiramate 100 MG Tab PO SCH (08:56)
[2017-11-09] MEDS: Lisinopril 20 MG Tab PO SCH (08:56)
[2017-11-09] MEDS: Metoprolol Tartrate 50 MG Tab PO SCH (08:56)
[2017-11-09] MEDS ORDERED: Enoxaparin 100 MG/1 ML Syringe SUBCUT ONE (09:00)
--- NOTE | 2017-11-09 13:14 | PCM.DCSUM1 ---
Discharge Summary - Hospital Course Free Text/Narrative:: Admitted for bariatric surgery on 11/05/2017 Brief History: Patient underwent open prisca-en-y gastric bypass on 11/05/2017. Post operatively she did well and UGI x-ray was normal. Diet was advanced to step 2 and she tolerated this well. On day prior to discharge she developed a fever of 101.1, likely pulmonary in nature. This improved with IS use and ambulation. She felt well on day of discharge and denied having any concerns. One time dose of lovenox was given prior to discharge due to patient's long commute. She was also advised to stop and ambulate half way through her trip home. - Discharge Data Discharge Date: 11/09/17 Discharge Disposition: Home, Self-Care 01 Condition: Good - Discharge Diagnosis/Problem(s) (1) Status post gastric bypass for obesity SNOMED Code(s): 873596671, [id number], [id number], [id number] ICD Code: Z98.84 - BARIATRIC SURGERY STATUS Status: Acute - Patient Summary/Data Consults: Consultations 11/05/17 13:31 Consult to Bariatric Services [CONS] Routine Comment: Consult to Head Of Measurement & Insights [CONS] Routine Comment: Physician Instructions: Quantity: Consult to Pharmacy [CONS] Routine Comment: Physician Instructions: Quantity: 11/08/17 10:44 Consult to Respiratory Therapy [Respiratory Care Assess and Treatment] [CONS] Routine Comment: Physician Instructions: Reason for Consult: see patient TID to assist in pulmonary toilet - Patient Instructions Diet, Other: Step 2 Gastric Bypass Diet with no Cereal for 2 weeks - 11/22/17 Activity: No Lifting Over 10 Pounds Activity, Other: Walk 6 times inside your home Driving: Do Not Drive Showering/Bathing: May Shower Wound/Incision Care: Keep Operative Site/Wound Site Clean and Dry Notify Provider of: Fever, Increased Pain, Swelling and Redness, Drainage, Nausea and/or Vomiting Other/Special Instructions: Strip, empty, measure and record ROBYN drain 4 times a day and bring record of drainage to clinic appointment. Use incentive inspirometer 10 times every hour while awake for 1 week. - Discharge Plan Home Medications: Home Meds Celecoxib [CeleBREX] 200 mg PO DAILY 11/03/17 [History] FLUoxetine [PROzac] 60 mg PO DAILY 11/03/17 [History] Metoprolol Tartrate 50 mg PO BID 11/03/17 [History] Paliperidone [Invega] 6 mg PO DAILY 11/03/17 [History] Ranitidine HCl [Zantac] 150 mg PO BID 11/03/17 [History] Topiramate [Topamax] 100 mg PO BID 11/03/17 [History] atorvaSTATin [Lipitor] 10 mg PO BEDTIME 11/03/17 [History] metFORMIN [Glucophage] 1,000 mg PO BIDMEALS 11/03/17 [History] traZODone 1 - 2 tab PO BEDTIME 11/03/17 [History] Albuterol [Proventil HFA] 2 puff INH Q6H PRN 11/05/17 [History] Ciclopirox [Loprox 0.77% Crm] 1 applic TOP DAILY 11/05/17 [History] Fluticasone Propionate [Flonase] 2 spray JEREMIAS BID PRN 11/05/17 [History] Ketoconazole [Nizoral 2% Crm] 1 applic TOP DAILY 11/05/17 [History] Lisinopril [Prinivil] 20 mg PO DAILY 11/05/17 [History] Loratadine 10 mg PO DAILY PRN 11/05/17 [History] Triamcinolone Acetonide [Triamcinolone Acetonide 0.025% Crm] 1 applic TOP BID PRN 11/05/17 [History] Acetaminophen [Tylenol] 650 mg PO Q6H cup 11/09/17 [Rx] Celecoxib [CeleBREX] 200 mg PO DAILY@0800 cap 11/09/17 [Rx] Ketoconazole [Nizoral 2% Crm] 0 gm TOP BID tube 11/09/17 [Rx] Referrals: Ana Laura Mccormick PA-C [Physician Radio Script Writer] - 11/18/17 11:00 am - General Info Functional Status: Reports: Pain Controlled, Tolerating Diet, Ambulating, Urinating, Incentive Spirometry - Review of Systems General: Reports: No Symptoms HEENT: Reports: No Symptoms Pulmonary: Reports: No Symptoms Cardiovascular: Reports: No Symptoms Gastrointestinal: Reports: Flatus Genitourinary: Reports: No Symptoms Musculoskeletal: Reports: No Symptoms Skin: Reports: No Symptoms Neurological: Reports: No Symptoms Psychiatric: Reports: No Symptoms Systems Review Comment: Patient reports that she is feeling well today. Denies having any concerns and states that she is ready for discharge. - Patient Data Vitals - Most Recent: Last Vital Signs Temp 36.6 C 11/09/17 07:34 Pulse 76 11/09/17 08:56 Resp 18 11/09/17 07:34 BP 130/74 11/09/17 08:56 Pulse Ox 96 11/09/17 07:34 Weight - Most Recent: 177.082 kg I&O - Last 24 hours: Intake & Output 11/08/17 11/09/17 11/09/17 22:59 06:59 14:59 Intake Total 480 700 240 Output Total 300 230 7 Balance 180 470 233 Med Orders - Current: Current Medications Discontinued Medications Acetaminophen (Tylenol Extra Strength) 1,000 mg PO ONETIME ONE Stop: 11/05/17 06:01 Last Admin: 11/05/17 06:32 Dose: 1,000 mg Acetaminophen (Tylenol) 650 mg PO Q6H [facility] Last Admin: 11/09/17 09:14 Dose: 650 mg Albuterol (Ventolin Hfa) 0 gm INH Q6H PRN PRN Reason: Dyspnea Cefoxitin Sodium (Mefoxin) Confirm Administered Dose 2 gm .ROUTE .STK-MED ONE Stop: 11/05/17 06:58 Last Admin: 11/05/17 08:58 Dose: 2 gm Cefoxitin Sodium (Mefoxin) Confirm Administered Dose 2 gm .ROUTE .STK-MED ONE Stop: 11/05/17 11:04 Celecoxib (Celebrex) 200 mg PO ONETIME ONE Stop: 11/05/17 06:01 Last Admin: 11/05/17 06:32 Dose: 200 mg Celecoxib (Celebrex) 200 mg PO DAILY@0800 [facility] Last Admin: 11/09/17 07:36 Dose: 200 mg Ropivacaine 60 ml/Dexamethasone 8 mg/Epinephrine HCl 0.4 mg/ Sodium Chloride 17.6 ml 0 ml NERVRT ASDIRECTED [facility] Last Admin: 11/05/17 08:46 Dose: 2 syringe Cyanocobalamin (Vitamin B12) 1,000 mcg IM ONETIME ONE Stop: 11/07/17 09:01 Last Admin: 11/07/17 11:23 Dose: 1,000 mcg Dexamethasone (Dexamethasone) Confirm Administered Dose 4 mg .ROUTE .STK-MED ONE Stop: 11/05/17 07:05 Diphenhydramine HCl (Benadryl) 25 - 50 mg IVPUSH Q4H PRN PRN Reason: ITCHING Enoxaparin Sodium (Lovenox) 100 mg SUBCUT ONETIME ONE Stop: 11/09/17 09:01 Last Admin: 11/09/17 09:14 Dose: 100 mg Fentanyl (Sublimaze) Confirm Administered Dose 250 mcg .ROUTE .STK-MED ONE Stop: 11/05/17 10:58 Fentanyl Citrate (Fentanyl) Confirm Administered Dose 500 mcg .ROUTE .STK-MED ONE Stop: 11/05/17 07:04 Fluoxetine HCl (Prozac) 60 mg PO DAILY [facility] Last Admin: 11/09/17 08:54 Dose: 60 mg Fluticasone Propionate (Flonase) 0 gm JEREMIAS BID PRN PRN Reason: Allergies Gabapentin (Neurontin) 300 mg PO ONETIME ONE Stop: 11/05/17 06:01 Last Admin: 11/05/17 06:32 Dose: 300 mg Gabapentin (Neurontin) 300 mg PO TID [facility] Last Admin: 11/09/17 08:54 Dose: 300 mg Glycopyrrolate (Robinul) Confirm Administered Dose 1 mg .ROUTE .STK-MED ONE Stop: 11/05/17 07:05 Heparin Sodium (Porcine) (Heparin Sodium) 5,000 units SUBCUT Q8H [facility] Last Admin: 11/09/17 09:14 Dose: Not Given Hydroxyzine HCl (Vistaril) 100 mg IM ONETIME ONE Stop: 11/05/17 12:05 Last Admin: 11/05/17 12:10 Dose: 100 mg Hydroxyzine HCl (Vistaril) 75 - 100 mg IM Q4H PRN PRN Reason: pain Last Admin: 11/05/17 20:53 Dose: 100 mg Cefoxitin Sodium 2 gm/ Sodium (Chloride) 50 mls @ 100 mls/hr IV ONETIME ONE Stop: 11/04/17 07:44 Last Admin: 11/05/17 12:50 Dose: Not Given Dextrose/Lactated Ringer's (Dextrose 5%-Lactated Ringers) 1,000 mls @ 100 mls/ hr IV ASDIRECTED [facility] Last Admin: 11/05/17 06:36 Dose: 100 mls/hr Lidocaine HCl/Dextrose (Lidocaine 2 Gm/D5w 500 Ml) 2 gm in 500 mls @ 30 mls/hr IV .[id number] [facility] Stop: 11/06/17 00:24 Last Admin: 11/05/17 13:30 Dose: 2 mg/min, 30 mls/hr Ketamine HCl 100 mg/ Sodium (Chloride) 100 mls @ 16.5 mls/hr IV ASDIRECTED [facility] Cefoxitin Sodium 2 gm/ Sodium (Chloride) 50 mls @ 100 mls/hr IV ONETIME ONE Stop: 11/05/17 07:44 Last Admin: 11/05/17 07:29 Dose: 100 mls/hr Lactated Ringer's (Ringers, Lactated) Confirm Administered Dose 1,000 mls @ as directed .ROUTE .STK-MED ONE Stop: 11/05/17 09:44 Sodium Chloride (Normal Saline) Confirm Administered Dose 10 mls @ as directed .ROUTE .STK-MED ONE Stop: 11/05/17 11:04 Dextrose/Lactated Ringer's (Dextrose 5%-Lactated Ringers) 1,000 mls @ 200 [facility]ls[facility] Admin: 11/06/17 05:11 Dose: 200 mls/hr Multivitamins/Minerals 10 ml/Thiamine HCl 100 mg/ Chromium/Copper/Manganese/ Seleni/Zn 1 ml/ Dextrose/Lactated Ringer's 1,012 mls @ 200 mls/hr IV DAILY@ 1600 [facility] Last Admin: 11/06/17 16:46 Dose: 200 mls/hr Cefoxitin Sodium 2 gm/ Sodium (Chloride) 50 mls @ 100 mls/hr IV Q6H [facility] Stop: 11/07/17 08:29 Last Admin: 11/07/17 08:51 Dose: Not Given Dextrose/Lactated Ringer's (Dextrose 5%-Lactated Ringers) 1,000 mls @ 80 mls/ hr IV ASDIRECTED [facility] Last Admin: 11/06/17 12:52 Dose: 100 mls/hr Ketamine HCl (Ketalar) 28 mg IV ASDIRECTED [facility] Ketoconazole (Nizoral 2% Crm) 0 gm TOP BID [facility] Last Admin: 11/09/17 08:55 Dose: 1 applic Labetalol HCl (Normodyne) 5 - 15 mg IVPUSH Q1H PRN PRN Reason: SBP over 160 OR DBP over 95 Lidocaine HCl (Xylocaine 2%) 150 mg IVPUSH ONETIME ONE Stop: 11/05/17 07:46 Last Admin: 11/05/17 12:51 Dose: Not Given Lisinopril (Prinivil) 20 mg PO DAILY [facility] Last Admin: 11/09/17 08:56 Dose: 20 mg Loratadine (Claritin) 10 mg PO DAILY PRN PRN Reason: Allergies Metformin HCl (Glucophage) 1,000 mg PO BIDMEALS [facility] Last Admin: 11/09/17 07:36 Dose: 1,000 mg Metoclopramide HCl (Reglan) 10 mg IVPUSH Q6H PRN PRN Reason: NAUSEA NOT CONTROL BY ZOFRAN Last Admin: 11/06/17 02:39 Dose: 10 mg Metoclopramide HCl (Reglan) 10 mg IVPUSH Q6H [facility] Last Admin: 11/07/17 03:06 Dose: Not Given Metoprolol Tartrate (Lopressor) 50 mg PO BID [facility] Last Admin: 11/09/17 08:56 Dose: 50 mg Miscellaneous Information (Remove Patch) 1 ea TRDERM ONETIME ONE Stop: 11/07/17 10:01 Last Admin: 11/07/17 11:24 Dose: Not Given Neostigmine Methylsulfate (Neostigmine) Confirm Administered Dose 5 mg .ROUTE .STK-MED ONE Stop: 11/05/17 07:05 Scopolamine Patch (Check) 1 each TOP DAILY [facility] Stop: 11/07/17 14:01 Last Admin: 11/07/17 08:53 Dose: Not Given Non-Formulary Medication (Nystatin [Nystatin]) 1 applic TOP TID PRN PRN Reason: Rash Non-Formulary Medication (Ciclopirox [Loprox 0.77% Crm]) 1 applic TOP DAILY [facility] Non-Formulary Medication (Ketoconazole [Nizoral 2% Crm]) 1 applic TOP DAILY [facility] Ondansetron HCl (Zofran) Confirm Administered Dose 4 mg .ROUTE .STK-MED ONE Stop: 11/05/17 07:05 Ondansetron HCl (Zofran) 4 mg IVPUSH Q4H PRN PRN Reason: Nausea/Vomiting Last Admin: 11/05/17 21:05 Dose: 4 mg Ondansetron HCl (Zofran Odt) 4 mg PO Q4H PRN PRN Reason: Nausea/Vomiting Paliperidone (Invega) 6 mg PO DAILY [facility] Last Admin: 11/09/17 08:55 Dose: 6 mg Pantoprazole Sodium (Protonix Iv) 40 mg IVPUSH Q24H [facility] Last Admin: 11/06/17 16:47 Dose: 40 mg Pantoprazole Sodium (Protonix) 40 mg PO ACBREAKFAST [facility] Last Admin: 11/09/17 07:36 Dose: 40 mg Propofol (Diprivan 20 Ml) Confirm Administered Dose 200 mg .ROUTE .STK-MED ONE Stop: 11/05/17 07:05 Rocuronium [place] (Zemuron) Confirm Administered Dose 50 mg .ROUTE .STK-MED ONE Stop: 11/05/17 07:05 Rocuronium [place] (Zemuron) Confirm Administered Dose 50 mg .ROUTE .STK-MED ONE Stop: 11/05/17 08:55 Rocuronium [place] (Zemuron) Confirm Administered Dose 50 mg .ROUTE .STK-MED ONE Stop: 11/05/17 10:52 Scopolamine (Transderm-Scop) 1.5 mg TOP ONETIME ONE Stop: 11/05/17 06:01 Last Admin: 11/05/17 06:32 Dose: 1.5 mg Succinylcholine Chloride (Quelicin) Confirm Administered Dose 200 mg .ROUTE .STK -MED ONE Stop: 11/05/17 07:05 Topiramate (Topamax) 100 mg PO BID [facility] Last Admin: 11/09/17 08:56 Dose: 100 mg Topiramate (Topamax) Confirm Administered Dose 100 mg .ROUTE .STK-MED ONE Stop: 11/07/17 20:50 Last Admin: 11/07/17 20:53 Dose: Not Given Trazodone HCl (Trazodone) 2 - 4 mg PO BEDTIME [facility] Last Admin: 11/06/17 22:37 Dose: Not Given Trazodone HCl (Trazodone) 100 - 200 mg PO BEDTIME [facility] Trazodone HCl (Trazodone) 100 - 200 mg PO BEDTIME [facility] Last Admin: 11/08/17 21:13 Dose: 200 mg Triamcinolone Acetonide (Triamcinolone Acetonide 0.1% Crm) 0 gm TOP BID PRN PRN Reason: Rash - Exam General: Reports: Alert, Oriented, Cooperative, No Acute Distress HEENT: Reports: Pupils Equal, Pupils Reactive Neck: Reports: Supple, Trachea Midline Lungs: Reports: Clear to Auscultation, Normal Respiratory Effort Cardiovascular: Reports: Regular Rate, Regular Rhythm GI/Abdominal Exam: Normal Bowel Sounds, Soft (Female) Exam: Deferred Rectal (Female) Exam: Deferred Back Exam: Reports: Normal Inspection Extremities: Normal Inspection, No Pedal Edema Skin: Reports: Warm, Dry, Intact Wound/Incisions: Reports: Healing Well, No Drainage (very minimal serosangineous drainage from ROBYN drains) Neurological: Reports: No New Focal Deficit Psy/Mental Status: Reports: Alert, Normal Affect, Normal Mood Discharge Operative/Procedures - Procedures Performed Operations: 11/05/2017 open prisca-en-y gastric bypass
--- NOTE | 2017-11-17 09:56 | OR ---
DATE OF PROCEDURE: 11/05/2017 PREOPERATIVE DIAGNOSIS: Morbid obesity. POSTOPERATIVE DIAGNOSES: 1. Morbid obesity. 2. Marked hepatomegaly. 3. Foreshortened mesentery requiring additional bowel resection for creation of Beth-en-Y small bowel configuration. PROCEDURE PERFORMED: Diagnostic laparoscopy converted to laparotomy with: 1. Formation of duodenal switch (42961). 2. Small bowel resection (88549). 3. Kevin-Cut needle liver biopsy (51065). ANESTHESIA: General. ASSISTANTS: 1. Ana Laura Mccormick PA-C. 2. BARB Saenz. 3. BARB Harden. INDICATIONS FOR PROCEDURE: This is a 32-year-old presenting for weight loss surgery, as she has a very high BMI. She also has had previous significant lower abdominal surgery, which might make mobilization of the small bowel somewhat difficult. The options then include duodenal switch, Beth-en-Y gastric bypass, or sleeve gastrectomy. All 3 have been approved per her insurance carrier, [employer], with discussion with that carrier earlier this week, and given the patient's quite extensive obesity and high BMI, it was felt at this point, a sleeve gastrectomy would probably be an inadequate procedure, and after final discussion with the patient and the patient's mother, we will plan to proceed with either duodenal switch or Beth-en-Y gastric bypass, which I think would result in satisfactory weight loss and comorbidity reduction. The need for potential open procedure is increased by using one of these procedures, but I believe the trade-off would probably be worth that risk, due to the increased weight loss concurrent with the latter 2 procedures. Potential risks per se were reviewed once again, including bleeding, infection, leaks from various GI tract closures, problems with bowel obstruction over time, as well as possibility of cardiopulmonary, septic, or hemorrhagic complications leading to were all gone over, and the patient and mother wished to proceed. DETAILS OF PROCEDURE: The patient was taken to the operating room and placed in a supine position. After general endotracheal anesthesia was induced, the patient was converted to lithotomy position, and the abdomen prepped and draped. An orogastric tube was also placed. At 15 cm inferior and 5 cm left of xiphoid process, a transverse incision was made and peritoneal cavity entered under direct vision with an Optiview trocar inflated to 15 mmHg pressure with CO2. The patient was noted to have quite extensive lower abdominal adhesions, after 2 additional trocars were placed. At this point, bilateral transversus abdominis plane blocks were placed under direct vision with the needle tip in the correct position and injection of the standard solution bilaterally. At that point, a decision was made to proceed with an open approach, given the extensive lower abdominal adhesions. After trocars were removed, an upper midline incision was made and carried down through the full-thickness of the abdominal wall. Upon entering the peritoneal cavity, incision was extended somewhat more inferiorly, and the lysis of adhesions of the small bowel was then undertaken and subsequently completed to the point that the small bowel would be ready for rerouting with the Beth-en-Y gastric bypass or duodenal switch. The patient's small bowel was extremely fat-laden in terms of its mesenteric attachments and relatively immobile, and this argued for formation of a duodenal switch, which would require less mobilization of the small bowel, and at that point, a decision was made to proceed in the direction of the duodenal switch. At this point, the greater omentum was then divided from the midportion of the curvature upward to include the highest and posterior short gastric vessels, and then divided distally extending to a point roughly 3-4 cm beyond the pylorus underlying the duodenum. This division was accomplished with a combination of PRINCE loads and Harmonic scalpel dissection. Following this, a 40-Vincentian chest tube was then placed orally and positioned along the lesser curvature of the stomach. Beginning 6 cm proximal to the pylorus, the sleeve gastrectomy was then accomplished with a combination of reinforced black and reinforced purple loads. This continued with a fairly snug application of the stapler against the bougie as we proceeded, and at that point, the sleeve gastrectomy specimen was delivered from the field. Both staple lines were inspected and found to be intact. At this point, the small bowel was mobilized upward. The patient has relatively limited omental capacity, and it was felt that an overly aggressive procedure might lead to significant problems with frequent loose bowel movements and diarrhea and attendant nutritional issues. At this point, the small bowel was identified at the ileocecal valve and then traced back 300 cm distal to that. The small bowel at that level was fairly immobile, due to shortening of the mesentery by the fatty infiltration. Given this, it was traced out another 40 cm and divided at that level, i.e. 340 cm proximal to the ileocecal valve. The mesentery underlying this was then traced back to a 300 cm point proximal to the ileocecal valve, which then allowed quite a bit more mobility of the small bowel. This was felt like it would come up to the duodenum or antrum area of the stomach with reasonably minimal tension. The more proximal divided small bowel, i.e. the long biliopancreatic limb, was then anastomosed at a point 200 cm proximal to the ileocecal valve, leaving a 100 cm limb above that, this being a slightly less aggressive approach, given the patient's mental status to additional duodenal switch. This anastomosis was accomplished with a [id number] enteroenterostomy with 60 mm PRINCE stapler. The common opening was closed transversely with the same stapler, the angles anastomosed, and mesenteric defect was then approximated with 3- 0 Vicryl stitch. At this point, the duodenum was then circled roughly 4 cm distal to the pyloric sphincter and divided there with a PRINCE garcia load. This area became somewhat dusky, and the proximal end of the divided duodenum appeared to be unsafe to anastomose. Given this, the stomach was divided immediately proximal to the pylorus, and that segment of the distalmost stomach and the proximal duodenum was then excised, after division of the mesenteric attachments. An end-to-side anastomosis was then accomplished with a 25 mm EEA stapler. The anvil was attached to a Leggett sump type tube, brought down through the mouth, and taken out through a small opening in the divided end of the stomach which had been brought through that area. The divided end of the Beth limb was then opened, and a few centimeters proximal to its end, the main body of the stapler was brought up to the anvil and united with it, thus creating a gastroileostomy. Upon removal of the stapler, both staple lines were noted to be intact. The divided end of the small bowel was divided with a PRINCE stapler as well, and the angles anastomosed, and then reinforced with 3-0 Vicryl stitch as well. At that point, no further problems were noted. The patient did have a significantly enlarged liver, Kevin-Cut needle biopsies were obtained at left lobe of the liver, and minimal bleeding from the biopsy site was controlled with electrocautery. The area was irrigated with antibiotic-containing saline solution. A single Roman-Dominguez drain was then brought up against the area of the gastroesophageal junction and from there into the splenic fossa. The midline fascia was approximated with a #2 Vicryl stitch, subcutaneous tissue was drained with a 15-Vincentian round Roman-Dominguez drain, and the incision closed with christiano at the skin level. Drains were affixed with some 4-0 Vicryl stitch, and the patient was taken to the recovery room in satisfactory condition. Physician golf course assistant, Ana Laura Mccormick played an essential role in assisting in this case, helping to position the patient, retract the structures as needed, as well as suturing and cutting sutures when indicated. Her presence improved the patient's safety and decreased the operative time. Seng Em MD /[id number]
== END 2017-11-09 10:01 | disposition home or self-care (01) | DRG 621 ==
LOC: JP.SDSSCHI 11-05 05:28 → JP.SDS 11-05 05:28 → EDSTATUS 11-05 09:00 → JP.2SS 11-05 11:45
PROVIDERS: ADMIT Surgery; ATTEND Surgery
PROC: 0DB60Z3 Excision of Stomach, Open Approach, Vertical (ICD-10-PCS; principal; 2017-11-05)
PROC: 0DJW4ZZ Inspection of Peritoneum, Percutaneous Endoscopic Approach (ICD-10-PCS; 2017-11-05)
PROC: 0DB80ZX Excision of Small Intestine, Open Approach, Diagnostic (ICD-10-PCS; 2017-11-05)
PROC: 0FB20ZX Excision of Left Lobe Liver, Open Approach, Diagnostic (ICD-10-PCS; 2017-11-05)
PROC: 3E0T3BZ Introduction of Anesthetic Agent into Peripheral Nerves and Plexi, Percutaneous Approach (ICD-10-PCS; 2017-11-05)
DX: E66.01 Morbid (severe) obesity due to excess calories (principal); Z68.44 Body mass index [BMI] 60.0-69.9, adult; R16.0 Hepatomegaly, not elsewhere classified; Z53.31 Laparoscopic surgical procedure converted to open procedure; K21.9 Gastro-esophageal reflux disease without esophagitis; I10 Essential (primary) hypertension; E78.5 Hyperlipidemia, unspecified; F31.9 Bipolar disorder, unspecified; R73.03 Prediabetes; Z87.891 Personal history of nicotine dependence; R19.7 Diarrhea, unspecified; G43.909 Migraine, unspecified, not intractable, without status migrainosus; Z91.030 Bee allergy status; Z88.8 Allergy status to other drugs, medicaments and biological substances; Z91.048 Other nonmedicinal substance allergy status
CPT/HCPCS: 36415; 74240; 74240-26; 82962; 86850; 86900; 86901; 87493; 88307; 88313; 94667; 94762; A9270-GY; C9113; J0171; J0330; J0694; J1100; J1644; J1650; J2001; J2405; J2704; J2710; J2765; J2795; J3010; J3410; J3411; J3420; J7030; J7042; J7050; J7120

== ENCOUNTER 2022-07-25 17:02 | Emergency (ER) | payer MEDICAID | END 2022-07-25 20:54 | disposition home or self-care (01) | LOC: JP.ED 17:02 | DX: S60.221A Contusion of right hand, initial encounter (principal); S10.93XA Contusion of unspecified part of neck, initial encounter; E78.00 Pure hypercholesterolemia, unspecified; F17.210 Nicotine dependence, cigarettes, uncomplicated; I10 Essential (primary) hypertension; E66.9 Obesity, unspecified; Z68.43 Body mass index [BMI] 50.0-59.9, adult; Z91.030 Bee allergy status; Z88.2 Allergy status to sulfonamides; Z91.048 Other nonmedicinal substance allergy status; Z79.899 Other long term (current) drug therapy; Z90.49 Acquired absence of other specified parts of digestive tract; Y04.0XXA Assault by unarmed brawl or fight, initial encounter | CPT/HCPCS: 73130-26-RT; 73130-RT; 99282; 99283 ==